=== PATIENT | male | born 1990 | race Caucasian/White ===

== ENCOUNTER → 2024-03-11 | Outpatient (CLI) | payer OTHER ==
[~2024-03-11] MED LIST: DOCU100 PO
[2024-03-11 16:16] LABS: Source, Urine Voided
[2024-03-11 17:20] LABS: Amorphous Light (0-Heavy); Bacteria Mod /hpf; Mucus Light (0-Heavy); Red Blood Cells, Urine 0-2 /hpf (0-2); Squamous Epithelial Cells Rare /hpf (Few); White Blood Cells, Urine 0-2 /hpf (0-5)
== END ==
LOC: LAB SHORT 16:14 → LAB 16:14
PROVIDERS: Nurse Practitioner Family
DX: N50.819 Testicular pain, unspecified (principal)
CPT/HCPCS: 81015; 87086